=== PATIENT | male | born 1975 | race Caucasian/White ===

== ENCOUNTER 2016-11-18 08:27 | Emergency (ER) | payer SELFPAY ==
[2016-11-18] MEDS ORDERED: IBUPROFEN 600 MG TABLET PO ONE (08:52)
[2016-11-18] MEDS ORDERED: HYDROCODONE/ACETAMINOPHEN 5-325 MG TABLET PO ONE (08:53)
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
--- NOTE | 2016-11-18 09:22 | RADIOLOGY REPORT (SQ) ---
EXAM DESCRIPTION: HAND LEFT 3 VIEWS COMPLETED DATE/TIME: 11/18/2016 9:10 am REASON FOR STUDY: left hand injury COMPARISON: None. EXAM PARAMETERS: NUMBER OF VIEWS: Three views. TECHNIQUE: AP, lateral and oblique radiographic images acquired of the left hand. LIMITATIONS: None. FINDINGS: MINERALIZATION: Normal. BONES: There is lateral subluxation of the 1st metacarpal relative to the trapezium. No fractures id entified. JOINTS: See above. SOFT TISSUES: No soft tissue swelling. No foreign body. OTHER: No other significant finding. IMPRESSION: Subluxation 1st carpometacarpal joint. TECHNICAL DOCUMENTATION: JOB ID: [id number] [employer]- All Rights Reserved
[2016-11-18] MEDS ORDERED: HYDROMORPHONE HCL INJ/PF 2 MG/ML AMPULE IM ONE (09:29)
--- NOTE | 2016-11-18 11:10 | RADIOLOGY REPORT (SQ) ---
EXAM DESCRIPTION: HAND LEFT 2 VIEWS COMPLETED DATE/TIME: 11/18/2016 10:32 am REASON FOR STUDY: post-reduction COMPARISON: 11/18/2016 pre reduction radiographs. FINDINGS: Two views of the left hand. No suggestion of subluxation or dislocation. No fracture. N o radiopaque foreign body. IMPRESSION: No persistent subluxation on the 2 images provided labeled "Post reduction" . TECHNICAL DOCUMENTATION: JOB ID: [id number]
[2016-11-18 11:28] VITALS: BP 107/60
== END 2016-11-18 11:25 | disposition home or self-care (01) ==
LOC: ER 08:27
PROC: 0RS Upper Joints, Reposition (ICD-10-PCS; principal; 2016-11-18)
DX: S63.042A Subluxation of carpometacarpal joint of left thumb, initial encounter (principal); F17.200 Nicotine dependence, unspecified, uncomplicated; Y04.0XXA Assault by unarmed brawl or fight, initial encounter
CPT/HCPCS: 99283; 96372; 73130; 73120; 26641; J1170

== ENCOUNTER 2020-04-12 09:59 | Emergency (ER) | payer SELFPAY ==
[2020-04-12 10:08] VITALS: BP 137/88
[2020-04-12] MEDS ORDERED: IBUPROFEN 800 MG TABLET PO ONE (10:56)
--- NOTE | 2020-04-12 10:58 | ER Document Report ---
ED Medical Screen (RME) - General Stated Complaint: GROIN PAIN Time Seen by Provider: 04/12/20 10:56 Mode of Arrival: Ambulatory Notes: Patient presents complaining of low back pain that radiates to the right thigh and the right groin area. Patient also complains of rectal pain. Patient states that he has had the pain for several years although worsened over the past several weeks and increased after ejaculation today. Patient also compl ains of urinary frequency. Patient denies any fever. I have greeted and performed a rapid initial assessment of this patient. A comprehensive ED assessment and evaluation of the patient, analysis of test results and completion of the medical decision making process will be conducted by additional ED providers. TRAVEL OUTSIDE OF THE [place] IN LAST 30 DAYS: No - Related Data Allergies/Adverse Reactions: No Known Allergies Allergy (Verified 11/18/16 08:33) Past Medical History Renal/ Medical History: Denies: Hx Peritoneal Dialysis Past Surgical History: Reports: Hx Thyroid Surgery - Immunizations Hx Diphtheria, Pertussis, Tetanus Vaccination: Yes Physical Exam - Vital signs Vitals: Temp Pulse Resp BP Pulse Ox 98.2 F 61 18 137/88 H 97 04/12/20 10:07 04/12/20 10:07 04/12/20 10:07 04/12/20 10:07 04/12/20 10:07 - General Notes: Right SI tenderness, no saddle anesthesia Course - Vital Signs Vital signs: Temp Pulse Resp BP Pulse Ox 98.2 F 61 18 137/88 H 97 04/12/20 10:07 04/12/20 10:07 04/12/20 10:07 04/12/20 10:07 04/12/20 10:07
--- NOTE | 2020-04-12 11:35 | RADIOLOGY REPORT (SQ) ---
EXAM DESCRIPTION: L SPINE WHOLE IMAGES COMPLETED DATE/TIME: 04/12/2020 11:24 am REASON FOR STUDY: low back pain COMPARISON: None. NUMBER OF VIEWS: Five views including obliques. TECHNIQUE: AP, lateral, oblique, and sacral radiographic images acquired of the lumbar spine. LIMITATIONS: None. FINDINGS: MINERALIZATION: Normal. SEGMENTATION: Normal. No transitional anatomy. ALIGNMENT: Normal. VERTEBRAE: Maintained height. No fracture or worrisome bone lesion. DISCS: Mild L1-2 disc space narrowing with osteophytes. POSTERIOR ELEMENTS: Pedicles and facets are intact. No pars defect or posterior arch defects. Facet arthropathy is present. HARDWARE: None in the spine. PARASPINAL SOFT TISSUES: Normal. PELVIS: Intact as visualized. No fractures or worrisome bone lesions. SI joints intact. OTHER: No other significant finding. IMPRESSION: No acute findings. TECHNICAL DOCUMENTATION: JOB ID: [id number] [place]-72 2010 [employer]- All Rights Reserved Reading location - IP/workstation name: [email or web address]
[2020-04-12 11:43] LABS: APPEARANCE,URINE CLEAR; BILIRUBIN,URINE NEGATIVE (NEGATIVE); COLOR,URINE STRAW; GLUCOSE, URINE NEGATIVE (NEGATIVE); KETONES,URINE NEGATIVE (NEGATIVE); LEUKOCYTE ESTERASE,URINE NEGATIVE (NEGATIVE); NITRITE,URINE NEGATIVE (NEGATIVE); PROTEIN,URINE NEGATIVE (NEGATIVE); URINE SPECIFIC GRAVITY 1.008; UROBILINOGEN,URINE NEGATIVE mg/dL (<2.0)
[2020-04-12 13:05] LABS: CHLAM PCR NOT DETECTED (NOT DETECT)
[2020-04-12] MEDS ORDERED: IBUPROFEN 800 MG TABLET ONE (13:35)
--- NOTE | 2020-04-13 20:24 | ER Document Report ---
Entered by ELLE TRINH SCRIBE 04/12/20 1409 Acting as scribe for:RAYA GIANG MD ED General - General Chief Complaint: Groin Pain Stated Complaint: GROIN PAIN Time Seen by Provider: 04/12/20 10:56 Mode of Arrival: Ambulatory Information source: Patient Notes: This 44 year old male patient presents to the emergency department today with complaints of right sided low back pain. Patient reports he has had low back pain for about a year but last night after having sexual intercourse he developed increasing pain in his low back with associated right posterior thigh numbness. He has nad this numbness once in the past but it only lasted for about 20 minutes. He reports he has been taking his fathers muscle relaxers and they've helped but he does not know what type of muscle relaxers they are. TRAVEL OUTSIDE OF THE [place] IN LAST 30 DAYS: No - Related Data Allergies/Adverse Reactions: No Known Allergies Allergy (Verified 11/18/16 08:33) Past Medical History - General Information source: Patient - Social History Smoking Status: Current Every Day Smoker Cigarette use (# per day): Yes Chew tobacco use (# tins/day): No Frequency of alcohol use: None Drug Abuse: None Family History: Reviewed & Not Pertinent Patient has homicidal ideation: No - Medical History Medical History: Negative Past Surgical History: Reports: Hx Thyroid Surgery - Immunizations Hx Diphtheria, Pertussis, Tetanus Vaccination: Yes Review of Systems - Review of Systems Constitutional: No symptoms reported EENT: No symptoms reported Cardiovascular: No symptoms reported Respiratory: No symptoms reported Gastrointestinal: No symptoms reported Genitourinary: No symptoms reported Male Genitourinary: No symptoms reported Musculoskeletal: See HPI, Back pain Skin: No symptoms reported Hematologic/Lymphatic: No symptoms reported Neurological/Psychological: See HPI, Numbness - right posterior thigh -: Yes All other systems reviewed and negative Physical Exam - Vital signs Vitals: Temp Pulse Resp BP Pulse Ox 98.2 F 61 18 137/88 H 97 04/12/20 10:07 04/12/20 10:07 04/12/20 10:07 04/12/20 10:07 04/12/20 10:07 - Notes Notes: Physical Exam: General: Alert, appears well. HEENT: Normocephalic. Atraumatic. PERRL. Extraocular movements intact. Oropharynx clear. Neck: Supple. Non-tender. Respiratory: No respiratory distress. Clear and equal breath sounds bilaterally. Cardiovascular: Regular rate and rhythm. Abdominal: Normal Inspection. Non-tender. No distension. Normal Bowel Sounds. Back: Extension of the low back causes increased pain. Flexion of the low back decreases pain. There is left low back and buttock tenderness to palpation with increasing tenderness over the right ischial tuberosity. Extremities: Moves all four extremities. Upper extremities: Normal inspection. Normal ROM. Lower extremities: Normal inspection. No edema. Normal ROM. Neurological: Normal cognition. AAOx4. Normal speech. Psychological: Normal affect. Normal Mood. Skin: Warm. Dry. Normal color. Course - Vital Signs Vital signs: Temp Pulse Resp BP Pulse Ox 98.2 F 61 18 137/88 H 97 04/12/20 10:07 04/12/20 10:07 04/12/20 10:07 04/12/20 10:07 04/12/20 10:07 - Laboratory Results Critical Laboratory Results Reviewed: No Critical Results - Radiology Results Critical Radiology Results Reviewed: No Critical Results Discharge - Discharge Clinical Impression: Low back pain of over 3 months duration, Radicular pain of lumbosacral region Condition: Stable Disposition: HOME, SELF-CARE Additional Instructions: Low Back Pain Three out of every four people will have an episode of disabling back pain during their lifetime. Most commonly the pain is due to straining of the muscles and ligaments in the low back. Usual treatment includes: (1) Rest on a firm surface. Avoid lying on your stomach. (2) Ice pack the painful area. After a few days, gentle heat may be used intermittently to relax the area, or ice packs can be continued. (3) Medication may be needed -- muscle relaxers and antiinflammatory medicines are commonly used. (4) As the back improves, exercises are prescribed to strengthen the back and abdominal muscles. Your doctor will advise you on the proper care for your back at each stage in your recovery. You may be better in a few days -- or healing may take several weeks. If new symptoms of a "herniated disc" (radiation of pain, numbness, or tingling down the back of the leg or weakness in the leg) occur, you should be re-examined. Further testing may be necessary. Radiculopathy Radiculopathy is irritation of a nerve. Sometimes this is called "pinched nerve." The pain can be sharp and stabbing, constant and dull, or burning in nature. The pain can occur in any area of the chest, shoulders, or arms. Sometimes the pain is provoked by coughing or moving. Radiculopathy can be caused by physical pressure on a nerve, such as a herniated disc or swollen joint in the spine. It can also be caused by viral infections within the nerve or by nerve damage due to diabetes or blood vessel disease. Radicular pain is treated with antiinflammatory medicine. Injections may help resistant cases, if we can identify a single nerve that's causing the pain. Surgery is usually not necessary. If symptoms do not improve with time, you may need additional testing, such as an MRI or EMG (electromyogram). Return if there is local weakness or numbness, shortness of breath, increasing pain, or other new symptoms. Take the medications as prescribed. Avoid arching your back or other activities that seem to bring out the numbness in your thigh. Follow-up with a local medical doctor if not improving. You may benefit from seeing a chiropractor for this problem. RETURN TO THE EMERGENCY ROOM IF ANY NEW OR WORSENING SYMPTOMS. Prescriptions: Cyclobenzaprine HCl 5 mg PO Q8 PRN #15 tablet PRN Reason: Prednisone [Deltasone 10 mg Tablet] 10 mg PO ASDIR PRN #21 tablet PRN Reason: I personally performed the services described in the documentation, reviewed and edited the documentation which was dictated to the scribe in my presence, and it accurately records my words and actions.
== END 2020-04-12 14:32 | disposition home or self-care (01) ==
LOC: ER 09:59
DX: M54.17 Radiculopathy, lumbosacral region (principal); M54.5 Low back pain; R20.0 Anesthesia of skin; F17.210 Nicotine dependence, cigarettes, uncomplicated
CPT/HCPCS: 72110; 81001; 87491; 87591; 99284